=== PATIENT | male | born 1950 | race Caucasian/White ===

== ENCOUNTER 2017-12-07 08:41 | Outpatient (CLI) | payer MEDICARE ==
--- NOTE | 2017-12-07 12:27 | XRAY Report ---
Procedure Date: 12/07/2017 Accession Number: [id number] / [id number] Procedure: XRS - Lumbar Spine 2 View CPT Code: FULL RESULT: EXAM: Lumbar Spine 2 View DATE: 12/07/2017 9:19 AM CLINICAL HISTORY: ACUTE CHRONIC L SCIATICA HX OF CERVICAL FUSION COMPARISON: None. TECHNIQUE: 3 views. FINDINGS: Alignment: Normal. No spondylolisthesis or scoliosis. Bones: Five avb-jyo-gghnyax lumbar vertebral bodies are present. No fractures or bone lesions. Disks: Moderate degenerative disc disease, with disc space narrowing worst at L5-S1. Facets: Moderate facet arthropathy. Sacroiliac Joints: Unremarkable. Soft Tissues: Normal. The visualized bowel gas pattern is normal. IMPRESSION: Moderate degenerative changes. No evidence of fracture. RADIA
--- NOTE | 2017-12-07 12:28 | XRAY Report ---
Procedure Date: 12/07/2017 Accession Number: [id number] / [id number] Procedure: XRS - Cervical Spine Complete CPT Code: FULL RESULT: EXAM: Cervical Spine Complete DATE: 12/07/2017 9:19 AM CLINICAL HISTORY: ACUTE CHRONIC L SCIATICA HX OF CERVICAL FUSION COMPARISON: None. TECHNIQUE: 5 views. FINDINGS: Alignment: Normal. No spondylolisthesis or scoliosis. Bones: The cervical vertebral bodies and posterior elements are well-visualized from the skull base through C7-T1. No fractures or bone lesions. Disks: Moderate degenerative changes, with disc space narrowing worst at C6-7. Facets: Mild facet arthropathy. Neural Foramina: Osseous neural foraminal narrowing, worst on the right at C6-7. Soft Tissues: Normal. No prevertebral soft tissue swelling. The visualized lung apices are clear. IMPRESSION: Degenerative changes, with osseous neural foraminal narrowing. RADIA
== END 2017-12-07 08:42 | disposition home or self-care (01) ==
LOC: DI.S 08:41
PROVIDERS: ATTEND Family Medicine
DX: M51.36 Other intervertebral disc degeneration, lumbar region (principal); M47.896 Other spondylosis, lumbar region; M51.37 Other intervertebral disc degeneration, lumbosacral region; M47.892 Other spondylosis, cervical region; M50.31 Other cervical disc degeneration, high cervical region
CPT/HCPCS: 72050; 72100

== ENCOUNTER 2018-05-18 09:45 | Outpatient (CLI) | payer MEDICARE, OTHER ==
--- NOTE | 2018-05-18 15:52 | XRAY Report ---
Reason: PAIN OF RIGHT WRIST Procedure Date: 05/18/2018 Accession Number: [id number] / [id number] Procedure: XR - Wrist 2 View RT CPT Code: FULL RESULT: EXAM: RIGHT WRIST RADIOGRAPHY EXAM DATE: 05/18/2018 12:41 PM. CLINICAL HISTORY: Pain of right wrist. Fall 2 months ago. COMPARISON: None. TECHNIQUE: 2 views. FINDINGS: Bones: Normal. No fractures or bone lesions. Joints: Mild degenerative narrowing of the STT joint. Soft Tissues: Normal. No soft tissue swelling. IMPRESSION: No fracture. Mild degenerative changes of the STT joint. RADIA
== END 2018-05-18 09:46 | disposition home or self-care (01) ==
LOC: DI 09:45
PROVIDERS: ATTEND Nurse Practitioner Family
DX: M25.531 Pain in right wrist (principal)

== ENCOUNTER 2019-09-12 16:37 | Outpatient (CLI) | payer MEDICARE, OTHER | END 2019-09-12 16:38 | disposition home or self-care (01) | LOC: COV 16:37 | PROVIDERS: ATTEND Family Medicine | DX: R50.9 Fever, unspecified (principal); R05 Cough; J02.9 Acute pharyngitis, unspecified | CPT/HCPCS: 81599 ==

== ENCOUNTER 2019-11-23 09:18 | Outpatient (CLI) | payer MEDICARE, OTHER ==
--- NOTE | 2019-11-25 14:03 | MRI Report ---
PROCEDURE: Lumbar Spine W/O INDICATIONS: WEAKNESS OF LOWER EXTREMITY TECHNIQUE: Noncontrast sagittal T1 spin echo and T2 fast echo, sagittal STIR, axial T1 and T2 fast spin echo thr ough the lumbar spine. In cases with scoliosis, additional coronal T2 fast spin echo may be performe d. COMPARISON: None. FINDINGS: Image quality: Excellent. Alignment and Curvature: There is normal bony alignment. Bone Marrow: Marrow is of normal overall signal. No acute vertebral body compression fractures. Spinal Cord: Conus medullaris terminates at the L1-2 disc level. Visualized cord demonstrates uyen l signal and size. Paraspinous Soft Tissues: No paravertebral masses. T12-L1: Normal in appearance. L1-L2: Loss of disc signal. Minimal, diffuse disc bulge. No central stenosis. No neural foraminal narrowing. No neural compression. L2-L3: Loss of disc signal. Minimal, diffuse disc bulge. Mild bilateral facet hypertrophy. No cent ral stenosis. Mild bilateral neural foraminal narrowing. No neural compression. L3-L4: Loss of disc signal. Minimal, diffuse disc bulge. Moderate facet and mild ligamentum flavum hypertrophy. Pnci-wx-gzmlugxv narrowing of the central canal. Mild to moderate bilateral neural ozzy inal narrowing. No neural compression. L4-L5: Loss of disc signal. Minimal, diffuse disc bulge. Severe bilateral facet hypertrophy. Modera te ligamentum flavum hypertrophy. Severe narrowing of the central canal with slight compression of th e nerve roots of the cauda equina. Severe bilateral neural foraminal narrowing with slight compressio n of the exiting L4 nerve roots. L5-S1: Loss of disc signal and height. Mild, diffuse disc bulge. Moderate bilateral facet hypertrop hy. No central stenosis. Severe bilateral neural foraminal narrowing with compression of the exiting L5 nerve roots. Fissure noted in the posterior annulus. IMPRESSION: 1. Multilevel degenerative disc disease. 2. Multilevel facet atrophy. 3. Severe L4-L5 central canal stenosis with slight compression of the nerve roots of the cauda equina . 4. Severe bilateral L4-L5 and L5-S1 neural foraminal narrowing with slight compression of the exiting bilateral L4 nerve roots and marked compression of the exiting bilateral L5 nerve roots. 5. L5-S1 disc annulus fissure. Reviewed by: Mackenzie Hoffman MD, PhD on 11/25/2019 9:58 AM PDT Approved by: Mackenzie Hoffman MD, PhD on 11/25/2019 9:58 AM PDT Station ID: [id number]
--- NOTE | 2019-11-25 14:03 | MRI Report ---
PROCEDURE: Thoracic Spine W/O INDICATIONS: WEAKNESS LOWER EXTREMITY TECHNIQUE: Noncontrast sagittal T1 spine echo and T2 fast spin echo, sagittal STIR, axial T1 and T2 fast spin ec ho through the thoracic spine. COMPARISON: None. FINDINGS: Image quality: Excellent. Alignment and Curvature: There is normal bony alignment. Bones: Postsurgical changes compatible T4-T6 laminectomies noted. Mild reactive endplate changes not ed adjacent to the T4-T5, T6-T7, T7-T8 and T8-T9 disks. No acute vertebral body compression fractures . Spinal Cord: Visualized spinal cord is normal in size and signal. Spinal cord is slightly anteriorly displaced and flattened from T4 through T6 possibly related to presence of arachnoid cyst or postsur gical and intrathecal fibrosis. Paraspinous Soft Tissues: No paravertebral masses. Miscellaneous: Mild multilevel degenerative disc disease. On axial images, central canal and foramin a appear widely patent at all scanned levels. IMPRESSION: 1. L4-L6 laminectomies. 2. Mild multilevel degenerative disc disease. 3. No central stenosis. 4. No neural foraminal narrowing. 5. Slight anterior displacement and compression of the thoracic spinal cord from T4-T6 which could be related to postsurgical change or related the presence of an arachnoid cyst. No abnormal spinal cord signal. Reviewed by: Mackenzie Hoffman MD, PhD on 11/25/2019 9:53 AM PDT Approved by: Mackenzie Hoffman MD, PhD on 11/25/2019 9:53 AM PDT Station ID: [id number]
== END 2019-11-23 09:19 | disposition home or self-care (01) ==
LOC: DI 09:18
DX: M51.34 Other intervertebral disc degeneration, thoracic region (principal); G95.20 Unspecified cord compression; M51.36 Other intervertebral disc degeneration, lumbar region; M51.37 Other intervertebral disc degeneration, lumbosacral region; M99.83 Other biomechanical lesions of lumbar region; M47.816 Spondylosis without myelopathy or radiculopathy, lumbar region; M47.817 Spondylosis without myelopathy or radiculopathy, lumbosacral region; M48.061 Spinal stenosis, lumbar region without neurogenic claudication
CPT/HCPCS: 72146; 72148

== ENCOUNTER 2020-04-14 11:11 | Outpatient (CLI) | payer MEDICARE, OTHER | END 2020-04-14 11:12 | disposition home or self-care (01) | LOC: COV 11:11 | PROVIDERS: ATTEND Family Medicine | DX: Z20.828 Contact with and (suspected) exposure to other viral communicable diseases (principal) ==

== ENCOUNTER 2020-06-17 15:38 | Outpatient (CLI) | payer MEDICARE, OTHER ==
[2020-06-17 21:06] LABS: ALBUMIN 4.6 g/dL (3.2-5.5); ALBUMIN/GLOBULIN RATIO 1.5 (1.0-2.2); ALKALINE PHOSPHATASE 112 IU/L (42-121); ALT ALANINE AMINOTRANSFERASE 26 IU/L (10-60); AST ASPARTATE AMINOTRANSFERASE 25 IU/L (10-42); BILIRUBIN,TOTAL 1.1 mg/dL (0.2-1.0); BUN - BLOOD UREA NITROGEN 24 mg/dL (6-20); CALCIUM 9.1 mg/dL (8.5-10.3); CARBON DIOXIDE - CO2 26 mmol/L (21-32); CHLORIDE 101 mmol/L (101-111); CHOLESTEROL 173 mg/dL; CREATININE 0.8 mg/dL (0.6-1.2); GLUCOSE 150 mg/dL (70-100); HDL CHOLESTEROL 58 mg/dL; LDL CHOLESTEROL,CALCULATED 95 mg/dL; LDL/HDL RATIO 1.6 (<3.6); SODIUM 138 mmol/L (135-145); TOTAL PROTEIN 7.6 g/dL (6.7-8.2); VLDL CHOLESTEROL 20 mg/dL
[2020-06-17 21:08] LABS: HEMOGLOBIN A1c% 7.6 % (4.27-6.07)
== END 2020-06-17 15:39 | disposition home or self-care (01) ==
LOC: LAB.S 15:38
PROVIDERS: ATTEND Family Medicine
DX: E11.9 Type 2 diabetes mellitus without complications (principal); Z79.4 Long term (current) use of insulin; E03.9 Hypothyroidism, unspecified
CPT/HCPCS: 36415; 80053; 80061; 82043; 83036; 83721; 84443

== ENCOUNTER 2021-01-27 14:46 | Outpatient (CLI) | payer MEDICARE, OTHER ==
[2021-01-27 20:06] LABS: BILIRUBIN,URINE NEGATIVE (NEGATIVE); GLUCOSE, URINE (UA) NEGATIVE (NEGATIVE); KETONES,URINE (UA) NEGATIVE (NEGATIVE); LEUKOCYTE ESTERASE, URINE TRACE (NEGATIVE); NITRITE,URINE POSITIVE (NEGATIVE); OCCULT BLOOD,URINE MODERATE (NEGATIVE); PH,URINE 6.5 PH (5.0-7.5); PROTEIN,URINE NEGATIVE (NEGATIVE); UROBILINOGEN,URINE 0.2 (NORMAL) E.U./dL (NORMAL)
[2021-01-27 20:13] LABS: CALCIUM 9.1 mg/dL (8.5-10.3); CREATININE 0.8 mg/dL (0.6-1.2)
[2021-01-27 20:17] LABS: BACTERIA,URINE Few /HPF (None Seen); CLARITY,URINE CLEAR (CLEAR); MUCUS,URINE Few Strands; RBC,URINE 0-5 /HPF (0-5); SQUAMOUS EPITHELIAL CELL,UR FEW Squamous (<= Few)
== END 2021-01-27 14:47 | disposition home or self-care (01) ==
LOC: LAB.S 14:46
PROVIDERS: ATTEND Urology
DX: Z01.812 Encounter for preprocedural laboratory examination (principal); N39.0 Urinary tract infection, site not specified
CPT/HCPCS: 36415; 80048; 81001; 87077; 87086; 87181

== ENCOUNTER 2021-01-30 11:20 | Outpatient (CLI) | payer MEDICARE, OTHER ==
--- NOTE | 2021-01-30 13:30 | Ultrasound Report ---
PROCEDURE: Retroperitoneal INDICATIONS: NEUROGENIC BLADDER TECHNIQUE: Real-time scanning was performed of the retroperitoneal organs, with image documentation. COMPARISON: None. FINDINGS: Kidneys: Kidneys are normal in size. Right kidney measures 11.6 cm long; left kidney measures 12.3 cm long. Right renal cortical thickness is 1.8 cm; left renal cortical thickness is 1.3 cm. No mi d masses, hydronephrosis, or nephrolithiasis. Both kidneys demonstrate a lobular contour, without masses. A Brown catheter seen, which decompresses the bladder. IMPRESSION: No significant kidney abnormality can be seen. No hydronephrosis. Collapsed bladder, with Brown catheter. Reviewed by: Javad Dietz MD on 01/30/2021 12:29 PM [facility] Approved by: Javad Dietz MD on 01/30/2021 12:29 PM SYED Station ID: [id number]
== END 2021-01-30 11:21 | disposition home or self-care (01) ==
LOC: DI 11:20
PROVIDERS: ATTEND Urology
DX: R33.9 Retention of urine, unspecified (principal); Z87.448 Personal history of other diseases of urinary system

== ENCOUNTER 2021-02-15 19:00 | Outpatient (CLI) | payer MEDICARE, OTHER ==
[2021-02-16 15:07] LABS: BILIRUBIN,URINE NEGATIVE (NEGATIVE); GLUCOSE, URINE (UA) NEGATIVE (NEGATIVE); KETONES,URINE (UA) NEGATIVE (NEGATIVE); LEUKOCYTE ESTERASE, URINE NEGATIVE (NEGATIVE); NITRITE,URINE NEGATIVE (NEGATIVE); OCCULT BLOOD,URINE SMALL (NEGATIVE); PH,URINE 5.5 PH (5.0-7.5); PROTEIN,URINE NEGATIVE (NEGATIVE); UROBILINOGEN,URINE 0.2 (NORMAL) E.U./dL (NORMAL)
[2021-02-16 15:17] LABS: BACTERIA,URINE Rare /HPF (None Seen); CLARITY,URINE CLEAR (CLEAR); MUCUS,URINE Few Strands; RBC,URINE 0-5 /HPF (0-5); SQUAMOUS EPITHELIAL CELL,UR FEW Squamous (<= Few); WBC,URINE 0-3 /HPF (0-3)
== END 2021-02-15 23:59 | disposition home or self-care (01) ==
LOC: LAB.S 19:00
PROVIDERS: ATTEND Emergency Medicine
DX: N39.0 Urinary tract infection, site not specified (principal); T83.511A Infection and inflammatory reaction due to indwelling urethral catheter, initial encounter
CPT/HCPCS: 81001; 87070; 87077; 87086; 87181; 87205

== ENCOUNTER 2021-03-12 09:35 | Outpatient (CLI) | payer MEDICARE, OTHER ==
[2021-03-12 15:47] LABS: BILIRUBIN,URINE NEGATIVE (NEGATIVE); GLUCOSE, URINE (UA) NEGATIVE (NEGATIVE); KETONES,URINE (UA) NEGATIVE (NEGATIVE); LEUKOCYTE ESTERASE, URINE SMALL (NEGATIVE); NITRITE,URINE NEGATIVE (NEGATIVE); OCCULT BLOOD,URINE NEGATIVE (NEGATIVE); PH,URINE 5.5 PH (5.0-7.5); PROTEIN,URINE NEGATIVE (NEGATIVE); UROBILINOGEN,URINE 0.2 (NORMAL) E.U./dL (NORMAL)
[2021-03-12 16:11] LABS: BACTERIA,URINE Few /HPF (None Seen); CLARITY,URINE HAZY (CLEAR); RBC,URINE 0-5 /HPF (0-5); SQUAMOUS EPITHELIAL CELL,UR FEW Squamous (<= Few); WBC,URINE >25 /HPF (0-3)
== END 2021-03-12 09:36 | disposition home or self-care (01) ==
LOC: LAB.S 09:35
PROVIDERS: ATTEND Nurse Practitioner Adult Health
DX: R82.90 Unspecified abnormal findings in urine (principal); R35.0 Frequency of micturition
CPT/HCPCS: 81001; 87086

== ENCOUNTER 2021-09-13 15:22 | Outpatient (CLI) | payer MEDICARE, OTHER ==
--- NOTE | 2021-09-14 13:41 | Ultrasound Report ---
PROCEDURE: Retroperitoneal INDICATIONS: URINARY RETENTION TECHNIQUE: Real-time scanning was performed of the kidneys and bladder, with image documentation. COMPARISON: 01/30/2021. FINDINGS: Kidneys: Right kidney measures 11.5 cm long; left kidney measures 11.9 cm long. Right renal cortica l thickness is 1.9 cm; left renal cortical thickness is 1.9 cm. Renal cortical echotexture is normal . No hydronephrosis or nephrolithiasis. No suspicious solid mass lesions. Bladder: Pre-void bladder volume is 52 mL. Post-void residual is 83 mL. Pre-void images demonstrat e no intraluminal masses or stones. On pre-void images, bilateral ureteral jets are noted with color Doppler interrogation. Miscellaneous: No free pelvic fluid. IMPRESSION: 1. Postvoid residual volume of 83 mL consistent with history of urinary retention. 2. No evidence of hydronephrosis. Reviewed by: Christopher Davis MD on 09/14/2021 1:39 PM PDT Approved by: Christopher Davis MD on 09/14/2021 1:39 PM PDT Station ID: [id number]
== END 2021-09-13 15:23 | disposition home or self-care (01) ==
LOC: DI 15:22
PROVIDERS: ATTEND Urology
DX: R33.9 Retention of urine, unspecified (principal)

== ENCOUNTER 2021-12-27 08:00 | Outpatient (CLI) | payer MEDICARE, OTHER | END 2021-12-27 23:59 | disposition home or self-care (01) | LOC: LAB.S 08:00 | PROVIDERS: ATTEND Physician Assistant | DX: A46 Erysipelas (principal) | CPT/HCPCS: 87070; 87077; 87181; 87205 ==

== ENCOUNTER 2022-02-22 13:05 | Outpatient (CLI) | payer MEDICARE, OTHER | END 2022-02-22 13:06 | disposition critical access hospital (66) | LOC: EMS 13:05 | DX: R53.1 Weakness (principal); R42 Dizziness and giddiness; R41.89 Other symptoms and signs involving cognitive functions and awareness; Z98.890 Other specified postprocedural states | CPT/HCPCS: A0425; A0429 ==

== ENCOUNTER 2022-02-22 13:54 | Emergency (ER) | payer MEDICARE, OTHER ==
[2022-02-22] MEDS ORDERED: SODIUM CHLORIDE 0.9% 1,000 ML IV STA (14:22)
[2022-02-22] MEDS ORDERED: LACTATED RINGERS 1,000 ML IV STA (14:22)
--- NOTE | 2022-02-22 14:24 | ED Physician Documentation ---
History of Present Illness - Stated complaint Stated Complaint: WEAKNESS - Chief complaint Chief Complaint: General - History obtained from History obtained from: Patient - Additonal information Additional information: 71-year-old gentleman is 2 weeks out from a lumbar fusion at [facility]. This was a redo procedure and he chronically has a neurogenic bladder for which she self caths because of positive postvoid residual. He was seen at [facility] yesterday and had a kerry out. He is actually already been on Keflex for for 5 days because of some concerns about the wound. Since yesterday he has felt generally weak with some chills. He noted this morning when he self cath about a liter came out and it was dark and foul-smelling. He denies respiratory complaints. No sick contacts. He is constipated, no BM in about a week and thinks he might be impacted. Review of Systems Ten Systems: 10 systems reviewed and negative Constitutional: reports: Fever, Chills, Fatigue Nose: denies: Rhinorrhea / runny nose Cardiac: denies: Chest pain / pressure, Palpitations Respiratory: denies: Dyspnea, Cough PD PAST MEDICAL HISTORY - Past Medical History Past Medical History: Yes Cardiovascular: None Respiratory: None Endocrine/Autoimmune: Type 1 diabetes GI: None : None HEENT: None Psych: None Musculoskeletal: None Derm: None - Past Surgical History Past Surgical History: Yes - Present Medications Home Medications: Ambulatory Orders Medication Instructions Recorded Confirmed FLUoxetine [PROzac] PO DAILY 09/14/14 09/14/14 Levothyroxine [Synthroid] PO DAILY 09/14/14 09/14/14 - Allergies Allergies/Adverse Reactions: Allergies Allergy/AdvReac Type Severity Reaction Status Date / Time Penicillins AdvReac Hives Verified 02/22/22 14:03 Sulfa (Sulfonamide AdvReac Hives Verified 02/22/22 14:03 Antibiotics) - Social History Does the pt smoke?: No Smoking Status: Never smoker Does the pt drink ETOH?: No Does the pt have substance abuse?: No - Immunizations Immunizations are current?: Yes - POLST Patient has POLST: No PD ED PE NORMAL - Vitals Vital signs reviewed: Yes - General General: Alert and oriented X 3, No acute distress - HEENT HEENT: PERRL, EOMI - Neck Neck: Supple, no meningeal sign, No bony TTP - Cardiac Cardiac: RRR, No murmur - Respiratory Respiratory: No respiratory distress, Clear bilaterally - Abdomen Abdomen: Normal bowel sounds, Soft, Non tender - Male Male : Other (Large fecal impaction that was manually disimpacted during exam and then an enema was placed. He had minimal pain with this suggesting some spinal cord deficit there.) - Back Back: No CVA TTP, Other (There is an extensive incision over the lumbar spine with mild dehiscence and very mild cellulitis at the superior edge.) - Derm Derm: Normal color, Warm and dry - Extremities Extremities: No edema, No calf tenderness / cord - Neuro Neuro: Alert and oriented X 3, Normal speech Results - Vitals Vitals: Vital Signs - 24 hr 02/22/22 02/22/22 02/22/22 14:03 14:07 14:21 Temperature 36.5 C 36.5 C Heart Rate 80 80 84 Respiratory 16 16 16 Rate Blood Pressure 147/67 H 147/67 H 147/69 H O2 Saturation 97 97 98 02/22/22 02/22/22 02/22/22 14:51 15:21 15:30 Temperature 36.8 C Heart Rate 84 81 80 Respiratory 16 16 16 Rate Blood Pressure 140/70 H 156/72 H 150/74 H O2 Saturation 98 97 98 02/22/22 02/22/22 02/22/22 16:07 16:30 17:00 Temperature 37.0 C Heart Rate 76 86 72 Respiratory 17 19 18 Rate Blood Pressure 166/73 H 158/78 H 162/78 H O2 Saturation 99 98 97 02/22/22 02/22/22 02/22/22 17:30 18:00 18:30 Temperature Heart Rate 68 71 65 Respiratory 16 16 16 Rate Blood Pressure 165/82 H 174/76 H 161/77 H O2 Saturation 97 98 97 02/22/22 19:00 Temperature Heart Rate 78 Respiratory 16 Rate Blood Pressure 172/80 H O2 Saturation 98 Oxygen O2 Source Room air - Labs Labs: Laboratory Tests 02/22/22 02/22/22 02/22/22 14:28 15:05 15:05 WBC 19.8 H RBC 3.44 L Hgb 10.2 L Hct 31.4 L MCV 91.3 MCH 29.7 MCHC 32.5 RDW 13.7 Plt Count 382 MPV 8.1 Neut # (Auto) 17.3 H Lymph # (Auto) 0.9 L Woods # (Auto) 1.4 H Eos # (Auto) 0.0 Baso # (Auto) 0.1 Absolute Nucleated RBC 0.00 Nucleated RBC % 0.0 Sodium 137 Potassium 4.3 Chloride 101 Carbon Dioxide 25 Anion Gap 11.0 BUN 21 H Creatinine 1.0 Estimated GFR (MDRD) 74 L Glucose 300 H Lactic Acid Calcium 9.0 Total Bilirubin 1.1 H AST 20 ALT 19 Alkaline Phosphatase 112 Total Protein 7.3 Albumin 3.7 Globulin 3.6 Albumin/Globulin Ratio 1.0 Urine Color YELLOW Urine Clarity CLEAR Urine pH 5.5 Ur Specific [place] 1.020 Urine Protein NEGATIVE Urine Glucose (UA) >=1000 H Urine Ketones NEGATIVE Urine Occult Blood NEGATIVE Urine Nitrite NEGATIVE Urine Bilirubin NEGATIVE Urine Urobilinogen 0.2 (NORMAL) Ur Leukocyte Esterase NEGATIVE Urine RBC None Seen Urine WBC 0-3 Ur Squamous Epith Cells RARE Squamous Urine Bacteria None Seen Urine Culture Comments NOT INDICATED Nasal Adenovirus (PCR) Nasal B. parapertussis DNA (PCR) Nasal Coronavir 229E PCR Nasal Coronavir HKU1 PCR Nasal Coronavir NL63 PCR Nasal Coronavir OC43 PCR Nasal Enterovir/Rhinovir PCR Nasal Influenza B PCR Nasal Influenza A PCR Nasal Parainfluen 1 PCR Nasal Parainfluen 2 PCR Nasal Parainfluen 3 PCR Nasal Parainfluen 4 PCR Nasal RSV (PCR) Nasal B.pertussis DNA PCR Nasal C.pneumoniae (PCR) Massimo Human Metapneumo PCR Nasal M.pneumoniae (PCR) Nasal SARS-CoV-2 (PCR) 02/22/22 02/22/22 15:05 17:10 WBC RBC Hgb Hct MCV MCH MCHC RDW Plt Count MPV Neut # (Auto) Lymph # (Auto) Woods # (Auto) Eos # (Auto) Baso # (Auto) Absolute Nucleated RBC Nucleated RBC % Sodium Potassium Chloride Carbon Dioxide Anion Gap BUN Creatinine Estimated GFR (MDRD) Glucose Lactic Acid 1.5 Calcium Total Bilirubin AST ALT Alkaline Phosphatase Total Protein Albumin Globulin Albumin/Globulin Ratio Urine Color Urine Clarity Urine pH Ur Specific [place] Urine Protein Urine Glucose (UA) Urine Ketones Urine Occult Blood Urine Nitrite Urine Bilirubin Urine Urobilinogen Ur Leukocyte Esterase Urine RBC Urine WBC Ur Squamous Epith Cells Urine Bacteria Urine Culture Comments Nasal Adenovirus (PCR) NOT DETECTED Nasal B. parapertussis DNA (PCR) NOT DETECTED Nasal Coronavir 229E PCR NOT DETECTED Nasal Coronavir HKU1 PCR NOT DETECTED Nasal Coronavir NL63 PCR NOT DETECTED Nasal Coronavir OC43 PCR NOT DETECTED Nasal Enterovir/Rhinovir PCR NOT DETECTED Nasal Influenza B PCR NOT DETECTED Nasal Influenza A PCR NOT DETECTED Nasal Parainfluen 1 PCR NOT DETECTED Nasal Parainfluen 2 PCR NOT DETECTED Nasal Parainfluen 3 PCR NOT DETECTED Nasal Parainfluen 4 PCR NOT DETECTED Nasal RSV (PCR) NOT DETECTED Nasal B.pertussis DNA PCR NOT DETECTED Nasal C.pneumoniae (PCR) NOT DETECTED Massimo Human Metapneumo PCR NOT DETECTED Nasal M.pneumoniae (PCR) NOT DETECTED Nasal SARS-CoV-2 (PCR) NOT DETECTED PD MEDICAL DECISION MAKING - ED course ED course: 71-year-old gentleman is about 2 weeks out from a lumbar fusion, feeling weak and hot overnight last night. He has mild wound infection is already on Keflex for same, it does not look bad enough to be the source of any systemic illness. He was noted to have a white count of 19,000, no fever here though. He is impacted with stool. I disimpacted him and we also gave him an enema and some oral laxatives. Given the white count a CT was done without pertinent positive findings except for the obstipation. He does not have increased back pain in fact his back pain is much better than presurgical and no new neuro symptoms. S/O to Dr Alcantar pending call back from [facility] spine c/s. Departure - Departure Disposition: 01 Home, Self Care Clinical Impression: Malaise, Leukocytosis, Obstipation Condition: Good Instructions: ED Constipation Follow-Up: Carolyn Dunn MD [Primary Care Provider] - LEILA PIERCE MD, PHD [Physician No Access] - Tomorrow Comments: Please follow-up with your spine surgeon for further care. Return if you worsen. Continue the Keflex. I spoke with Dr. Bishop perez. Please continue your current antibiotics. Discharge Date/Time: 02/22/22 19:36
[2022-02-22 14:55] LABS: BILIRUBIN,URINE NEGATIVE (NEGATIVE); GLUCOSE, URINE (UA) >=1000 mg/dL (NEGATIVE); KETONES,URINE (UA) NEGATIVE (NEGATIVE); LEUKOCYTE ESTERASE, URINE NEGATIVE (NEGATIVE); NITRITE,URINE NEGATIVE (NEGATIVE); OCCULT BLOOD,URINE NEGATIVE (NEGATIVE); PH,URINE 5.5 PH (5.0-7.5); PROTEIN,URINE NEGATIVE (NEGATIVE); UROBILINOGEN,URINE 0.2 (NORMAL) E.U./dL (NORMAL)
[2022-02-22 15:15] LABS: BASOPHILS # (AUTO) 0.1 10^3/uL (0.0-0.1); BASOPHILS % (AUTO) 0.3 %; HCT - HEMATOCRIT 31.4 % (42.0-52.0); HGB - HEMOGLOBIN 10.2 g/dL (14.0-18.0); LYMPHOCYTES # (AUTO) 0.9 10^3/uL (1.5-3.5); LYMPHOCYTES % (AUTO) 4.4 %; MEAN CORPUSCULAR HEMOGLOBIN 29.7 pg (27.0-31.0); MEAN CORPUSCULAR HGB CONC 32.5 g/dL (32.0-36.0); MEAN CORPUSCULAR VOLUME 91.3 fL (80.0-94.0); MEAN PLATELET VOLUME 8.1 fL (7.4-11.4); MONOCYTES # (AUTO) 1.4 10^3/uL (0.0-1.0); MONOCYTES % (AUTO) 7.1 %; NEUTROPHILS # (AUTO) 17.3 10^3/uL (1.5-6.6); NEUTROPHILS % (AUTO) 86.9 %; PLT - PLATELET COUNT 382 10^3/uL (130-450); RED BLOOD COUNT 3.44 10^6/uL (4.70-6.10); RED CELL DISTRIBUTION WIDTH 13.7 % (12.0-15.0); WHITE BLOOD COUNT 19.8 x10^3/uL (4.8-10.8)
[2022-02-22 15:23] LABS: BACTERIA,URINE None Seen /HPF (None Seen); CLARITY,URINE CLEAR (CLEAR); RBC,URINE None Seen /HPF (0-5); SQUAMOUS EPITHELIAL CELL,UR RARE Squamous (<= Few); WBC,URINE 0-3 /HPF (0-3)
[2022-02-22 15:43] LABS: ALBUMIN 3.7 g/dL (3.2-5.5); BILIRUBIN,TOTAL 1.1 mg/dL (0.2-1.0); POTASSIUM 4.3 mmol/L (3.5-5.0); TOTAL PROTEIN 7.3 g/dL (6.7-8.2)
[2022-02-22] MEDS ORDERED: LACTULOSE 10 GM /15 ML UDC PO STA (16:16)
[2022-02-22] MEDS ORDERED: bisacodyL 5 MG TABLET PO STA (16:16)
--- NOTE | 2022-02-22 16:16 | CT Report ---
PROCEDURE: Abdomen/Pelvis W INDICATIONS: IV only, fever, back infection CONTRAST: IV CONTRAST: Optiray 320 ml: 100 PO CONTRAST: *NO PO CONTRAST TECHNIQUE: After the administration of IV contrast, 5 mm thick sections acquired from the diaphragms to the symp hysis. 5 mm thick coronal and sagittal reformats were acquired. For radiation dose reduction, the f ollowing was used: automated exposure control, adjustment of mA and/or kV according to patient size. COMPARISON: None. FINDINGS: Image quality: There is limited visualization of the pelvis secondary to artifact from lumbar fusion hardware. ABDOMEN: Lung bases: Lung bases are clear. Heart size is normal. Solid organs: Liver and spleen are normal in size and enhancement. Hepatic steatosis is present. Gal lbladder demonstrates dependent stone within the lumen without wall thickening Biliary system is non dilated. Pancreas enhances normally. No adrenal nodules. Kidneys demonstrate normal size and enha ncement, without hydronephrosis. Peritoneum and bowel: Bowel loops demonstrate normal wall thickness and caliber. Moderate colonic st ool is present. No free fluid or air. Nodes and vessels: No retroperitoneal or mesenteric adenopathy by size criteria. Aorta and inferior vena cava are normal in size. Miscellaneous: No ventral hernias. PELVIS: Genitourinary: Bladder wall thickness is normal. Miscellaneous: No inguinal hernias or adenopathy. Bones: No suspicious bony lesions. No vertebral body compression fractures. IMPRESSION: Moderate colonic stool without obstruction. Cholelithiasis without imaging evidence of cholecystitis. Reviewed by: Jaki Kenny MD on 02/22/2022 4:15 PM PDT Approved by: Jaki Kenny MD on 02/22/2022 4:15 PM PDT Station ID: [id number]
--- NOTE | 2022-02-22 17:35 | XRAY Report ---
PROCEDURE: Chest 1 View X-Ray INDICATIONS: fever TECHNIQUE: One view of the chest was acquired. COMPARISON: None. FINDINGS: Surgical changes and devices: None. Lungs and pleura: No pleural effusions or pneumothorax. Lungs are clear. Mediastinum: Mediastinal contours appear normal. Heart size is borderline enlarged, although findin gs may be accentuated by portable AP technique. Bones and chest wall: No suspicious bony lesions. Overlying soft tissues appear unremarkable. IMPRESSION: Borderline cardiomegaly. No acute pulmonary consolidation. Reviewed by: Estevan Butler MD on 02/22/2022 5:33 PM PDT Approved by: Estevan Butler MD on 02/22/2022 5:33 PM PDT Station ID: [id number]
[2022-02-22 18:19] LABS: B. PARAPERTUSSIS- RESP PCR PAN NOT DETECTED; B. PERTUSSIS- RESP PCR PANEL NOT DETECTED; C. PNEUMONIAE- RESP PCR PANEL NOT DETECTED; CORONAVIRUS 229E-RESP PCR NOT DETECTED; CORONAVIRUS HKU1-RESP PCR NOT DETECTED; CORONAVIRUS NL63-RESP PCR NOT DETECTED; CORONAVIRUS OC43-RESP PCR NOT DETECTED; HUMAN METAPNEUMOVIRUS NOT DETECTED; INFLUENZA A- RESP PCR PANEL NOT DETECTED; INFLUENZA B - RESP PCR PANEL NOT DETECTED; M. PNEUMONIAE- RESP PCR PANEL NOT DETECTED; PARAINFLUENZA VIRUS 1 NOT DETECTED; PARAINFLUENZA VIRUS 2 NOT DETECTED; PARAINFLUENZA VIRUS 3 NOT DETECTED; PARAINFLUENZA VIRUS 4 NOT DETECTED; RHINOVIRUS/ENTEROVIRUS NOT DETECTED; RSV- RESP PCR PANEL NOT DETECTED; SARS-CoV-2 -RESP PCR PANEL NOT DETECTED
[2022-02-22 19:03] VITALS: BP 172/80
--- NOTE | 2022-02-22 19:27 | ED Physician Documentation ---
ED Addendum - Addendum Addendum: 02/22/22 19:26 Discussed the case with Dr. Alas, on-call for Dr. Ferreira from neurosurgery at the [facility]. We reviewed the patient's laboratory findings, x-ray findings, CT findings. Recommends continuing the Keflex and contacting the clinic in the morning for follow-up. Patient is comfortable with this plan. Patient does not have any back pain. No fevers here. Patient and family counseled regarding signs and symptoms for which I believe and urgent re-eval uation would be necessary. Patient with good understanding of and agreement to plan and is comfortable going home at this time This document was made in part using voice recognition software. While efforts are made to proofread this document, sound alike and grammatical errors may occur. Departure - Departure Disposition: 01 Home, Self Care Clinical Impression: Malaise, Obstipation Leukocytosis Qualifiers: Leukocytosis type: unspecified Qualified Code(s): D72.829 - Elevated white blood cell count, unspecified Condition: Good Instructions: ED Constipation Follow-Up: Carolyn Dunn MD [Primary Care Provider] - LEILA FERREIRA MD, PHD [Physician No Access] - Tomorrow Comments: Please follow-up with your spine surgeon for further care. Return if you worsen. Continue the Keflex. I spoke with Dr. Bishop perez. Please continue your current antibiotics.
== END 2022-02-22 19:36 | disposition home or self-care (01) ==
LOC: EDUNIT# → ED 13:54
DX: R53.81 Other malaise (principal); D72.829 Elevated white blood cell count, unspecified; K59.00 Constipation, unspecified; Z20.822 Contact with and (suspected) exposure to COVID-19
CPT/HCPCS: 36415; 51701; 71045; 74177; 80053; 81001; 83605; 85025; 87040; 87633; 99283; 99284; A9270; J7120; Q9967; 87086

== ENCOUNTER 2022-03-15 14:10 | Emergency (ER) | payer MEDICARE, OTHER ==
--- NOTE | 2022-03-15 15:28 | Ultrasound Report ---
PROCEDURE: Duplex Ext Veins Right INDICATIONS: RLE swelling TECHNIQUE: Real-time imaging, as well as color and pulse Doppler interrogation, were performed of the lower extr emity deep veins from the inguinal ligament to the popliteal fossa. COMPARISON: None. FINDINGS: Occlusive thrombus is identified in the distal right superficial femoral vein and right pop liteal vein. Partially occluding thrombus identified in the proximal and mid right superficial vein i n the right tibial and peroneal veins. IMPRESSION: Abnormal study demonstrating right lower extremity deep vein thrombosis. Reviewed by: Mackenzie Hoffman MD, PhD on 03/15/2022 3:27 PM PDT Approved by: Mackenzie Hoffman MD, PhD on 03/15/2022 3:27 PM PDT Station ID: [id number]
--- NOTE | 2022-03-15 16:27 | ED Physician Documentation ---
PD HPI LOWER EXT INJURY - Stated complaint Stated Complaint: RT FOOT SWOLLEN - Chief complaint Chief Complaint: Ext Problem - History obtained from History obtained from: Patient, Family (spouse) - History of Present Illness PD HPI LOW EXT INJURY LOCATION: Right, Lower leg, Ankle (He has noticed some gradual edema in the right lower leg and calf over a few days but markedly increased since yesterday.) Type of injury: No: Fall, Twist Where injury occurred: Home (has noted some cramping in right calf for few days, and then onset of swelling in ankle/lower leg since yesterday. No chest pain nor dyspnea.) Timing - details: Abrupt onset, Still present Improved by: Rest Worsened by: Moving. No: Palpating Associated symptoms: Swelling. No: Weakness, Numbness, Discolored Contributing factors: No: Anticoagulated, Prior ortho surgery Similar symptoms before: Has not had sx before Recently seen: Surgery (The patient had L4-5 fusion January mid-January. Has been having slower healing and so has been mostly in a wheelchair with some physical therapy.) Review of Systems Constitutional: denies: Fever, Chills Nose: denies: Rhinorrhea / runny nose, Congestion, Epistaxis Throat: denies: Sore throat Cardiac: denies: Chest pain / pressure, Palpitations Respiratory: denies: Dyspnea, Cough GI: denies: Abdominal Pain, Nausea, Vomiting, Bloody / black stool Musculoskeletal: reports: Back pain (back surgery a month ago with still small area of wound dehiscence, but no infection appearance. Getting visiting nurse wound care twice weekly.) PD PAST MEDICAL HISTORY - Past Medical History Cardiovascular: None Respiratory: None Endocrine/Autoimmune: Type 1 diabetes GI: None : None HEENT: None Psych: None Musculoskeletal: None Derm: None - Past Surgical History Past Surgical History: Yes - Present Medications Home Medications: Ambulatory Orders Medication Instructions Recorded Confirmed FLUoxetine [PROzac] PO DAILY 09/14/14 09/14/14 Levothyroxine [Synthroid] PO DAILY 09/14/14 09/14/14 Rivaroxaban [Xarelto] 15 mg PO BID 21 Days #42 tablet 03/15/22 - Allergies Allergies/Adverse Reactions: Allergies Allergy/AdvReac Type Severity Reaction Status Date / Time morphine Allergy Hives Verified 03/15/22 14:18 metformin AdvReac Unknown Verified 03/15/22 14:18 Penicillins AdvReac Hives Verified 03/15/22 14:17 Sulfa (Sulfonamide AdvReac Hives Verified 03/15/22 14:17 Antibiotics) - Social History Does the pt smoke?: No Smoking Status: Never smoker Does the pt drink ETOH?: No Does the pt have substance abuse?: No - Immunizations Immunizations are current?: Yes - POLST Patient has POLST: No PD ED PE NORMAL - Vitals Vital signs reviewed: Yes - General General: Alert and oriented X 3, No acute distress, Well developed/nourished - Cardiac Cardiac: RRR, No murmur - Respiratory Respiratory: Clear bilaterally - Abdomen Abdomen: Soft, Non tender - Back Back: Other (lower back midline scar with mostly healed except small 1 cm area of 2-3mm dehiscence without redness nor purulence (some pink edging c/w scarring).) - Derm Derm: Normal color, Warm and dry - Extremities Extremities: Other (left leg is okay. Right lower ext with 1+ edema in lower leg and around ankle. No redness nor warmth. Some calf tenderness and general swelling without tightness. ) Results - Vitals Vitals: Vital Signs - 24 hr 03/15/22 03/15/22 14:19 17:15 Temperature 36.1 C L 36.6 C Heart Rate 59 L 58 L Respiratory 18 16 Rate Blood Pressure 160/69 H 152/60 H O2 Saturation 100 98 Oxygen O2 Source Room air - Rads (name of study) duplex right leg Radiology: Prelim report reviewed (DVt noted with occlusive in peroneal area and nonocclusive high in femoral. ), See rad report PD MEDICAL DECISION MAKING - ED course Complexity details: reviewed results, considered differential, d/w patient, d/w family (spouse) Departure - Departure Disposition: 01 Home, Self Care Clinical Impression: Previous back surgery DVT (deep venous thrombosis) Qualifiers: DVT location: lower extremity Affected thrombotic vein of extremity: femoral Chronicity: acute Laterality: right Qualified Code(s): I82.411 - Acute embolism and thrombosis of right femoral vein Condition: Stable Record reviewed to determine appropriate education?: Yes Instructions: ED DVT Prescriptions: Rivaroxaban [Xarelto] 15 mg PO BID 21 Days #42 tablet Comments: You do have a blood clot in the right leg. This would be treated with an anticoagulant (blood thinner). I prescribed Xarelto 15 mg twice daily for the first 3 weeks. This then get switched to 20 mg daily. I would have your primary care take over the prescribing of this after the first few weeks. Tylenol every 4-6 hours if needed for pains. Elevate and rest your leg often to help reduce swelling. The swelling and pain in the leg should decrease gradually over a week or 2. It should not significantly worsen. I transmitted prescription to [facility] pharmacy in [place]. Discharge Date/Time: 03/15/22 17:27
[2022-03-15] MEDS ORDERED: ENOXAPARIN 100 MG/ML SYRINGE SUBQ STA (16:53)
[2022-03-15 17:26] VITALS: BP 152/60
== END 2022-03-15 17:27 | disposition home or self-care (01) ==
LOC: ED 14:10
DX: I82.411 Acute embolism and thrombosis of right femoral vein (principal)
CPT/HCPCS: 93971; 96372; 99284; J1650

== ENCOUNTER 2022-05-04 14:04 | Outpatient (CLI) | payer MEDICARE, OTHER ==
--- NOTE | 2022-05-04 14:59 | XRAY Report ---
PROCEDURE: Lumbar Spine Complete INDICATIONS: LUMBAR FUSION TECHNIQUE: 4 views of the lumbar spine were acquired. COMPARISON: 12/07/2017. FINDINGS: Bones: 5 [id number] vertebrae are present. Interval posterior lateral driss and pedicle screw fi xation from L3 through S1 with bilateral pedicle screws at each level. Interbody disc prostheses plac ed, as well. No evidence of hardware failure or loosening. There is normal bony alignment. No verteb ral body compression fractures. No suspicious bony lesions. Soft tissues: Overlying bowel gas pattern is normal. No suspicious soft tissue calcifications. IMPRESSION: Expected appearance of lumbar fusion hardware. Reviewed by: Joshua Cruz MD on 05/04/2022 2:58 PM PST Approved by: Joshua Cruz MD on 05/04/2022 2:58 PM PST Station ID: [id number]
== END 2022-05-04 14:05 | disposition home or self-care (01) ==
LOC: DI 14:04
DX: Z98.1 Arthrodesis status (principal)

== ENCOUNTER 2022-08-24 11:31 | Outpatient (CLI) | payer MEDICARE, OTHER ==
[2022-08-24 14:47] LABS: ALBUMIN 4.6 g/dL (3.2-5.5); ALBUMIN/GLOBULIN RATIO 1.4 (1.0-2.2); ALKALINE PHOSPHATASE 99 IU/L (42-121); ALT ALANINE AMINOTRANSFERASE 26 IU/L (10-60); AST ASPARTATE AMINOTRANSFERASE 24 IU/L (10-42); BILIRUBIN,TOTAL 1.3 mg/dL (0.2-1.0); BUN - BLOOD UREA NITROGEN 24 mg/dL (6-20); CALCIUM 9.2 mg/dL (8.5-10.3); CARBON DIOXIDE - CO2 26 mmol/L (21-32); CHLORIDE 108 mmol/L (101-111); CHOL/HDL RATIO 3.1 (<5.0); CHOLESTEROL 174 mg/dL; CREATININE 0.8 mg/dL (0.6-1.2); GFR - MDRD 96 (>89); GLUCOSE 161 mg/dL (70-100); HDL CHOLESTEROL 57 mg/dL; LDL CHOLESTEROL,CALCULATED 105 mg/dL; LDL/HDL RATIO 1.8 (<3.6); POTASSIUM 4.3 mmol/L (3.5-5.0); SODIUM 141 mmol/L (135-145); TOTAL PROTEIN 7.9 g/dL (6.7-8.2); TRIGLYCERIDES 61 mg/dL; VLDL CHOLESTEROL 12 mg/dL
[2022-08-24 14:54] LABS: THYROID STIMULATING HORMONE 1.06 uIU/mL (0.34-5.60)
[2022-08-24 14:59] LABS: ESTIMATED AVERAGE GLUCOSE 183 mg/dL (70-100)
== END 2022-08-24 11:32 | disposition home or self-care (01) ==
LOC: LAB.S 11:31
PROVIDERS: ATTEND Family Medicine
DX: E03.8 Other specified hypothyroidism (principal); E11.65 Type 2 diabetes mellitus with hyperglycemia; Z79.4 Long term (current) use of insulin
CPT/HCPCS: 36415; 80053; 80061; 83036; 83721; 84443

== ENCOUNTER 2022-10-25 11:54 | Outpatient (CLI) | payer MEDICARE, OTHER ==
--- NOTE | 2022-10-25 16:22 | XRAY Report ---
PROCEDURE: Cervical Spine Complete INDICATIONS: SPINAL STENOSIS TECHNIQUE: 4 views of the cervical spine acquired. COMPARISON: None. FINDINGS: Bones: No fractures or dislocations to the C7 level. Flexion and extension views demonstrate range o f motion in both the flexed and extended positions. There is preserved normal vertebral body alignmen t and the flexed and extended positions. Moderate C5-C6, C6-C7 and C7-T1 degenerative disc disease. M ild facet and uncovertebral hypertrophy throughout the cervical spine. Soft tissues: No prevertebral soft tissue swelling. IMPRESSION: 1. Multilevel degenerative disc disease. 2. Multilevel facet and uncovertebral arthropathy. 3. No fracture. No acute osseous lesion. If there is continued clinical concern for pathology, then M RI should be considered for further evaluation. 4. Limited range of motion in the flexed and extended positions. Reviewed by: Mackenzie Hoffman MD, PhD on 10/25/2022 4:20 PM PDT Approved by: Mackenzie Hoffman MD, PhD on 10/25/2022 4:20 PM PDT Station ID: [id number]
--- NOTE | 2022-10-25 16:23 | XRAY Report ---
PROCEDURE: Lumbar Spine Complete INDICATIONS: SPINAL STENOSIS TECHNIQUE: 3 views of the lumbar spine were acquired. COMPARISON: 05/04/2022 FINDINGS: Bones: 5 [id number] vertebrae are present. There is normal bony alignment. No vertebral body compression fractures. No suspicious bony lesions. Postsurgical changes compatible with L3-S1 PLIF. Orthopedic hardware is in expected position. Orthopedic hardware is intact. Mild L1-L2 and L2-L3 dege nerative disease. Moderate L3-L4, L4-L5 and L5-S1 facet arthropathy. Mild L1-L2 and L2-L3 facet arthr opathy. Soft tissues: Overlying bowel gas pattern is normal. No suspicious soft tissue calcifications. IMPRESSION 1. Multilevel degenerative disc disease. 2. Multilevel facet arthropathy. 3. No fracture. No acute osseous lesion. If there is continued clinical concern for pathology, then M RI should be considered for further evaluation. 4. Postsurgical changes. Reviewed by: Mackenzie Hoffman MD, PhD on 10/25/2022 4:22 PM PDT Approved by: Mackenzie Hoffman MD, PhD on 10/25/2022 4:22 PM PDT Station ID: [id number]
== END 2022-10-25 11:55 | disposition home or self-care (01) ==
LOC: DI.S 11:54
PROVIDERS: ATTEND Orthopaedic Surgery
DX: G82.22 Paraplegia, incomplete (principal); M48.00 Spinal stenosis, site unspecified; M54.50 Low back pain, unspecified; M50.322 Other cervical disc degeneration at C5-C6 level; M47.812 Spondylosis without myelopathy or radiculopathy, cervical region; M51.36 Other intervertebral disc degeneration, lumbar region; M47.816 Spondylosis without myelopathy or radiculopathy, lumbar region

== ENCOUNTER 2023-03-21 08:30 | Outpatient (CLI) | payer MEDICARE, OTHER ==
[2023-03-21 15:42] LABS: CALCIUM 9.3 mg/dL (8.5-10.3); CREATININE 0.7 mg/dL (0.6-1.3); POTASSIUM 4.4 mmol/L (3.5-4.5)
[2023-03-21 20:21] LABS: ESTIMATED AVERAGE GLUCOSE 128 mg/dL (70-100); HEMOGLOBIN A1c% 6.1 % (4.27-6.07)
== END 2023-03-21 08:31 | disposition home or self-care (01) ==
LOC: LAB.S 08:30
PROVIDERS: ATTEND Family Medicine
DX: E11.65 Type 2 diabetes mellitus with hyperglycemia (principal); Z79.4 Long term (current) use of insulin
CPT/HCPCS: 36415; 80048; 83036

== ENCOUNTER 2023-03-23 10:40 | Outpatient (CLI) | payer MEDICARE, OTHER ==
[2023-03-23 15:14] LABS: BASOPHILS # (AUTO) 0.1 10^3/uL (0.0-0.1); EOSINOPHILS # (AUTO) 0.2 10^3/uL (0.0-0.7); HGB - HEMOGLOBIN 14.2 g/dL (14.0-18.0); LYMPHOCYTES # (AUTO) 1.5 10^3/uL (1.5-3.5); LYMPHOCYTES % (AUTO) 23.8 %; MEAN CORPUSCULAR HEMOGLOBIN 30.5 pg (27.0-31.0); MEAN CORPUSCULAR VOLUME 92.5 fL (80.0-94.0); MEAN PLATELET VOLUME 9.6 fL (7.4-11.4); MONOCYTES # (AUTO) 0.7 10^3/uL (0.0-1.0); NEUTROPHILS # (AUTO) 3.6 10^3/uL (1.5-6.6); NEUTROPHILS % (AUTO) 59.7 %; PLT - PLATELET COUNT 225 10^3/uL (130-450); RED BLOOD COUNT 4.65 10^6/uL (4.70-6.10); RED CELL DISTRIBUTION WIDTH 13.3 % (12.0-15.0); WHITE BLOOD COUNT 6.1 x10^3/uL (4.8-10.8)
== END 2023-03-23 10:41 | disposition home or self-care (01) ==
LOC: LAB.S 10:40
PROVIDERS: ATTEND Family Medicine
DX: Z01.818 Encounter for other preprocedural examination (principal)
CPT/HCPCS: 36415; 85025

== ENCOUNTER 2023-05-24 11:15 | Outpatient (CLI) | payer MEDICARE, OTHER ==
--- NOTE | 2023-05-24 13:00 | XRAY Report ---
PROCEDURE: Lumbar Spine 4V INDICATIONS: SP LAMINOTOMY TECHNIQUE: 4 views of the lumbar spine were acquired. COMPARISON: 10/25/2022 FINDINGS: Bones: L3-S1 posterior fusion hardware with interbody spacers appears similar to prior. Interval post erior L2-L3 spacer placement and posterior decompression. On flexion-extension views, there is limited range of motion. No instability noted. Mild to moderate spondylosis elsewhere. Soft tissues: No suspicious calcifications. Partially seen hip arthrosis. IMPRESSION: New surgical changes above the L3-S1 fusion construct, with spacer placement. No unexpected findings. Limited range of motion without instability on flexion and extension. Reviewed by: Nato Shahid MD on 05/24/2023 12:59 PM PST Approved by: Nato Shahid MD on 05/24/2023 12:59 PM PST Station ID: [id number]
== END 2023-05-24 11:16 | disposition home or self-care (01) ==
LOC: DI.S 11:15
PROVIDERS: ATTEND Orthopaedic Surgery
DX: Z47.89 Encounter for other orthopedic aftercare (principal); Z98.1 Arthrodesis status

== ENCOUNTER 2023-06-28 14:15 | Outpatient (CLI) | payer MEDICARE, OTHER ==
--- NOTE | 2023-06-28 21:29 | XRAY Report ---
PROCEDURE: Lumbar Spine 4V INDICATIONS: STATUS POST LUMBAR SPINE PROCEDURE TECHNIQUE: 3 view(s) of the lumbar spine were acquired. COMPARISON: None. FINDINGS: Bones: Vertebral body height and alignment is maintained. No suspicious bony lesions. L3-4, L5 and L 5-S1 discectomy and fusion with posterior driss and screw instrumentation. Intraspinous fixation noted at L2-3. No evidence of hardware failure or loosening. Anterior osteophytes noted Soft tissues: Overlying bowel gas pattern is normal. No suspicious soft tissue calcifications. IMPRESSION: Lower lumbar spine instrumented discectomy and fusion as above. No hardware failure or l oosening Reviewed by: Gerardo Gagnon MD on 06/28/2023 8:28 PM [place] Approved by: Gerardo Gangon MD on 06/28/2023 8:28 PM [place] Station ID: [id number]
== END 2023-06-28 14:16 | disposition home or self-care (01) ==
LOC: DI.S 14:15
PROVIDERS: ATTEND Orthopaedic Surgery
DX: Z98.890 Other specified postprocedural states (principal); Z98.1 Arthrodesis status; M48.062 Spinal stenosis, lumbar region with neurogenic claudication

== ENCOUNTER 2023-09-25 10:18 | Outpatient (CLI) | payer MEDICARE, OTHER ==
--- NOTE | 2023-09-25 22:03 | MRI Report ---
Lumbar Spine WO Clinical History: 73 years of age, Male, LUMBAR STENOSIS, LUMBAAR FUSION. Comparison: 11/23/2019 Technique: Multiplanar multisequence lumbar spine MRI without contrast was performed. Findings: Prior surgery: Posterior fusion instrumentation with interbody spacer posterior decompression at L3-L 5. There is a small fluid collection posterior to the posterior spinous process of L2-3, measuring 2. 7 cm. There is a fluid collection within the posterior decompression bed at the level of L5, measurin g approximately 3.5 cm. Vertebral bodies: Mild inferior endplate fragility fracture of L2, likely acute. Additional diffuse m arrow edema of L2 vertebral body, favoring degenerative. Alignment: Straightening of the lumbar spine. Mild retrolisthesis of L2 on L3. Mild levocurvature of the lumbar spine, centered at L4. Bone marrow: Please see above. Intervertebral discs: Multilevel disc bulge and disc desiccation. The conus medullaris is normal in contour, signal intensity, and location. The tip of the conus is at L1-L2. The following axial levels are detailed below: T12-L1: Mild bilateral facet arthropathy. No central canal stenosis. No right neuroforaminal stenosis . No left neuroforaminal stenosis. L1-L2: Moderate bilateral facet arthropathy with ligamentum flavum hypertrophy. No central canal sten osis. No right neuroforaminal stenosis. No left neuroforaminal stenosis. L2-L3: Disc bulge. Severe bilateral facet arthropathy. Severe central canal stenosis. Mild right neur oforaminal stenosis. Severe left neuroforaminal stenosis. L3-L4: Posterior decompression. No central canal stenosis. Moderate right neuroforaminal stenosis. N o left neuroforaminal stenosis. L4-L5: Posterior decompression. No central canal stenosis. Mild right neuroforaminal stenosis. Mild l eft neuroforaminal stenosis. L5-S1: Posterior disc osteophyte complex. No central canal stenosis. Posterior decompression. Moderat e right neuroforaminal stenosis. Severe left neuroforaminal stenosis. Visualized sacrum and pelvis: Visualized sacrum is intact. No abdominal aortic aneurysm. IMPRESSION: Postprocedural changes in the lumbar spine as described above. 2 fluid collections about the posterio r element of the lumbar spine. Multilevel degenerative change of lumbar spine, most pronounced at L2-3, there is severe central celso l stenosis. Additional neuroforaminal stenosis as described above. Acute, mildly inferior endplate fragility fracture of L2. Additional diffuse marrow edema of L2 verte bral body, nonspecific and may be degenerative. Reviewed by: Tammy Carbajal MD on 09/25/2023 10:02 PM PDT Approved by: Tammy Carbajal MD on 09/25/2023 10:02 PM PDT Station ID: [id number]
== END 2023-09-25 10:19 | disposition home or self-care (01) ==
LOC: DI 10:18
PROVIDERS: ATTEND Orthopaedic Surgery
DX: M51.36 Other intervertebral disc degeneration, lumbar region (principal); M48.061 Spinal stenosis, lumbar region without neurogenic claudication; M47.816 Spondylosis without myelopathy or radiculopathy, lumbar region; M80.08XA Age-related osteoporosis with current pathological fracture, vertebra(e), initial encounter for fracture; M48.07 Spinal stenosis, lumbosacral region

== ENCOUNTER 2023-09-28 08:00 | Outpatient (CLI) | payer MEDICARE, OTHER ==
--- NOTE | 2023-09-28 19:17 | XRAY Report ---
PROCEDURE: Hip w/Pelvis 2-3V LT INDICATIONS: LEFT BUTTOCK ULCER TECHNIQUE: 2 views of the hip were acquired. COMPARISON: MR lumbar spine 09/25/2023. FINDINGS: Bones: No fractures or dislocations. No suspicious bony lesions. Lumbar sacral spine fixation hardw are. Moderate bilateral hip DJD. Soft tissues: No suspicious soft tissue calcifications or masses. Small calcifications in the mandy on of the peritoneum. IMPRESSION: No acute bony abnormality. Consider CT pelvis with IV contrast for further evaluation. Reviewed by: Bairon Harris MD on 09/28/2023 7:16 PM PDT Approved by: Bairon Harris MD on 09/28/2023 7:16 PM PDT Station ID: [id number]
== END 2023-09-28 23:59 | disposition home or self-care (01) ==
LOC: DI.S 08:00
PROVIDERS: ATTEND Emergency Medicine
DX: L98.419 Non-pressure chronic ulcer of buttock with unspecified severity (principal)

== ENCOUNTER → 2023-09-28 | Outpatient (CLI) | payer MEDICARE, OTHER | LOC: LAB.S 08:00 | PROVIDERS: ATTEND Emergency Medicine | DX: Z71.89 Other specified counseling (principal); E11.9 Type 2 diabetes mellitus without complications | CPT/HCPCS: 82962 ==

== ENCOUNTER 2023-12-22 07:41 | Outpatient (CLI) | payer MEDICARE, OTHER ==
[2023-12-22 15:57] LABS: ALBUMIN 4.3 g/dL (3.2-5.5); ALBUMIN/GLOBULIN RATIO 1.5 (1.0-2.2); ALKALINE PHOSPHATASE 80 IU/L (42-121); ALT ALANINE AMINOTRANSFERASE 21 IU/L (10-60); AST ASPARTATE AMINOTRANSFERASE 23 IU/L (10-42); BILIRUBIN,TOTAL 0.7 mg/dL (0.2-1.0); BUN - BLOOD UREA NITROGEN 36 mg/dL (6-20); CALCIUM 9.4 mg/dL (8.5-10.3); CARBON DIOXIDE - CO2 24 mmol/L (21-32); CHLORIDE 108 mmol/L (101-111); CHOL/HDL RATIO 3.4 (<5.0); CHOLESTEROL 166 mg/dL; CREATININE 1.1 mg/dL (0.6-1.3); GFR - MDRD 66 (>89); GLUCOSE 161 mg/dL (74-104); HDL CHOLESTEROL 49 mg/dL; LDL CHOLESTEROL,CALCULATED 101 mg/dL; LDL/HDL RATIO 2.1 (<3.6); SODIUM 139 mmol/L (135-145); TOTAL PROTEIN 7.1 g/dL (6.4-8.9); TRIGLYCERIDES 79 mg/dL; VLDL CHOLESTEROL 16 mg/dL
[2023-12-22 16:00] LABS: CREATININE,URINE 127.4 mg/dL; MICROALBUM/CREATININE RATIO,UR 24.3 ug/mg (<30.0); MICROALBUMIN,URINE 3.1 mg/dL
[2023-12-22 16:03] LABS: THYROID STIMULATING HORMONE 1.39 uIU/mL (0.34-5.60)
[2023-12-22 20:32] LABS: ESTIMATED AVERAGE GLUCOSE 140 mg/dL (70-100); HEMOGLOBIN A1c% 6.5 % (4.27-6.07)
== END 2023-12-22 07:42 | disposition home or self-care (01) ==
LOC: LAB.S 07:41
PROVIDERS: ATTEND Family Medicine
DX: E11.65 Type 2 diabetes mellitus with hyperglycemia (principal); Z79.4 Long term (current) use of insulin; E03.8 Other specified hypothyroidism
CPT/HCPCS: 36415; 80053; 80061; 82043; 82570; 83036; 83721; 84436; 84439; 84443

== ENCOUNTER 2024-01-08 14:08 | Outpatient (CLI) | payer MEDICARE, OTHER ==
--- NOTE | 2024-01-09 21:37 | XRAY Report ---
PROCEDURE: Lumbar Spine 4V INDICATIONS: LUMBAR STENOSIS TECHNIQUE: 3 view(s) of the lumbar spine were acquired. COMPARISON: None. FINDINGS: Bones: Vertebral body height and alignment is maintained. No suspicious bony lesions. L3-4, L4-5 and L5-S1 interbody fusion with posterior driss and screw instrumentation. Disc spaces narrowing the upper lumbar spine Soft tissues: Overlying bowel gas pattern is normal. No suspicious soft tissue calcifications. IMPRESSION: Instrumented discectomy and fusion the lower lumbar spine without evidence of complication Reviewed by: Gerardo Gagnon MD on 01/09/2024 8:35 PM SYED Approved by: Gerardo Gagnon MD on 01/09/2024 8:35 PM [email or web address] Station ID: [id number]
== END 2024-01-08 14:09 | disposition home or self-care (01) ==
LOC: DI.S 14:08
PROVIDERS: ATTEND Naturopath
DX: M48.062 Spinal stenosis, lumbar region with neurogenic claudication (principal); Z98.1 Arthrodesis status

== ENCOUNTER 2024-02-03 10:29 | Outpatient (CLI) | payer MEDICARE, OTHER | END 2024-02-03 23:59 | disposition E | LOC: EMS 10:29 | DX: I46.9 Cardiac arrest, cause unspecified (principal) ==